=== PATIENT | male | born 1985 | race Caucasian/White ===

== ENCOUNTER 2020-10-24 02:49 | Emergency (ER) | payer SELFPAY ==
[2020-10-24] MEDS ORDERED: Proparacaine 0.5% Ophth Soln 15 ML Bottle EYEBOTH STA (03:26)
[2020-10-24] MEDS ORDERED: Tetracaine HCl/PF 0.5% 4 ML Bottle ONE (03:55)
[2020-10-24] MEDS ORDERED: Tetracaine HCl/PF 0.5% 4 ML Bottle EYELF STA (03:55)
[2020-10-24] MEDS ORDERED: Erythromycin Base 0.5% Ophth Oint 1 GM Tube EYERT ONE (04:07)
--- NOTE | 2020-10-24 04:12 | EDM.PDOC ---
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 He has a foreign body sensation. When he closes his lid it feels like it rubs against his eye. 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 He has irritation. There is no discharge. Review of systems: As per history of present illness and below otherwise all systems reviewed and negative. Past medical history: As per history of present illness and as reviewed below otherwise noncontributory. Surgical history: As per history of present illness and as reviewed below otherwise noncontributory. Social history: No reported history of drug or alcohol abuse. Family history: As per history of present illness and as reviewed below otherwise noncontribu tory. Physical exam: Constitutional - well developed, well-nourished and in no acute distress HEENT - normocephalic, no evidence of trauma - external nose and mouth normal - no mass in neck and no JVD - mucosae moist EYES - full EOM, PERRL, no icterus -palpebral conjunctiva injected in the right eye. Lid eversion negative lid search negative fluorescein exam negative anesthetized in a very careful lid eversion none not revealing foreign matter. The patient had an irrigation under his eyelid 3 times with saline. Respiratory - no respiratory distress, equal bilateral expansion, lungs clear to auscultation and no abnormal lung sounds Cardiovascular - Regular Rhythm with S1 and S2 appreciated and no murmur, gallop or rub. GI - abdomen soft without distension or organomegaly - normal bowel sounds - no guard or rebound Musculoskeletal no gross deformity of long bones or joints - no tenderness, swelling or edema Neurologic - Alert and oriented times four - CN II-XII grossly intact - motor sensory and coordination symmetrically normal Psychiatric - appropriate mood and affect with normal thought content Hematologic - No petechiae or purpura - mucosa appropriate color and sclera not pale - normal nail bed color and refill Integument - no rash or evidence of trauma - normal turgor Diagnostics: [] Therapeutics: [] Impression: [] Plan: [] Definitive disposition and diagnosis as appropriate pending reevaluation and review of above. 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 Pain Score (Numeric/FACES): 6 - Related Data Allergies Allergy/AdvReac Type Severity Reaction Status Date / Time No Known Allergies Allergy Verified 10/24/20 03:18 Home Meds: Home Meds SUMAtriptan succinate [Imitrex] 0 mg INJECT ASDIRECTED PRN 12/01/14 [History] Erythromycin Base [Erythromycin 0.5% Ophth Oint] 1 applic OP Q12H #1 gm 10/24/20 [Rx] Past Medical History - Past Health History Medical/Surgical History: Denies Medical/Surgical History HEENT History: Reports: None Cardiovascular History: Reports: None Respiratory History: Reports: None Gastrointestinal History: Reports: None Genitourinary History: Reports: None Musculoskeletal History: Reports: None Other Neuro History: "cluster headaches" Psychiatric History: Reports: None Endocrine/Metabolic History: Reports: None Hematologic History: Reports: None Immunologic History: Reports: None Oncologic (Cancer) History: Reports: None Dermatologic History: Reports: None - Infectious Disease History Infectious Disease History: Reports: None - Past Surgical History Head Surgeries/Procedures: Reports: None Social & Family History - Family History Family Medical History: No Pertinent Family History - Tobacco Use Tobacco Use Status *Q: Current Some Day Tobacco User Years of Tobacco use: 15 Packs/Tins Daily: 1 Used Tobacco, but Quit: No - Caffeine Use Caffeine Use: Reports: None - Recreational Drug Use Recreational Drug Use: No ED ROS GENERAL - Review of Systems Review Of Systems: Comprehensive ROS is negative, except as noted in HPI. ED EXAM GENERAL W FULL EYE - Physical Exam Exam: See Below Text/Narrative:: My physical exam is in the HPI Course - Vital Signs Last Recorded V/S: Last Vital Signs Temp 36.6 C 10/24/20 03:13 Pulse 62 10/24/20 03:13 Resp 18 10/24/20 03:13 BP 148/83 H 10/24/20 03:13 Pulse Ox 98 10/24/20 03:13 - Orders/Labs/Meds Orders: Active Orders 24 hr Category Date Time Status Erythromycin Base [Erythromycin 0.5% Ophth Oint] Med 10/24/20 04:07 Once 1 gm EYERT ONETIME ONE Meds: Medications Discontinued Medications Generic Name Dose Route Start Last Admin Trade Name Freq PRN Reason Stop Dose Admin Proparacaine HCl 0.2 ml 10/24/20 03:26 10/24/20 03:55 Proparacaine 0.5% Ophth Soln 15 Ml Bottle EYEBOTH 10/24/20 03:27 Not Given STAT STA Tetracaine HCl 2 ml 10/24/20 03:55 10/24/20 03:57 Tetracaine Hcl/Pf 0.5% 4 Ml Bottle EYELF 10/24/20 03:56 1 drop NOW STA Administration Tetracaine HCl Confirm 10/24/20 03:55 10/24/20 03:59 Tetracaine Hcl/Pf 0.5% 4 Ml Bottle Administered 10/24/20 03:56 Not Given Dose 4 ml .ROUTE .STK-MED ONE Departure - Departure Time of Disposition: 04:09 Disposition: Home, Self-Care 01 Condition: Good Clinical Impression: Conjunctivitis - Discharge Information Instructions: Bacterial Conjunctivitis, Adult, [id number] Referrals: [facility] [Primary Care Provider] - Bradford Fonseca MD [Ordering Only Provider] - Additional Instructions: Placing ointment in your lower eyelid at bedtime and once when you get up in the morning. Additional medicine has been sent to the pharmacy in case you run out. If there is a foreign body small enough that it was difficult for us to find or see and it persists you need to see the [employer] technical lead senior developer. [facility] - Primary Care [address] [place] [address] [place] [address] The following information is given to patients seen in the emergency department who are being discharged to home. This information is to outline your options for follow-up care. We provide all patients seen in our emergency department with a follow-up referral. The need for follow-up, as well as the timing and circumstances, are variable depending upon the specifics of your emergency department visit. If you don't have a primary care physician on staff, we will provide you with a referral. We always advise you to contact your personal physician following an emergency department visit to inform them of the circumstance of the visit and for follow-up with them and/or the need for any referrals to a consulting specialist. The emergency department will also refer you to a specialist when appropriate. This referral assures that you have the opportunity for follow-up care with a specialist. All of these measure are taken in an effort to provide you with optimal care, which includes your follow-up. Under all circumstances we always encourage you to contact your private hythomascian who remains a resource for coordinating your care. When calling for follow-up care, please make the office aware that this follow-up is from your recent emergency room visit. If for any reason you are refused follow-up, please contact the [facility] Emergency Department at and asked to speak to the emergency department charge nurse. Sepsis Event Note (ED) - Evaluation Sepsis Screening Result: No Definite Risk - Focused Exam Vital Signs: Vital Signs Temp Pulse Resp BP Pulse Ox 10/24/20 03:13 36.6 C 62 18 148/83 H 98 - My Orders Last 24 Hours: My Active Orders 10/24/20 04:07 Erythromycin Base [Erythromycin 0.5% Ophth Oint] 1 gm EYERT ONETIME ONE - Assessment/Plan Last 24 Hours: My Active Orders 10/24/20 04:07 Erythromycin Base [Erythromycin 0.5% Ophth Oint] 1 gm EYERT ONETIME ONE
[2020-10-24 04:33] VITALS: BP 128/72; PULSE 82
== END 2020-10-24 04:34 | disposition home or self-care (01) ==
LOC: MW.ED 02:49
DX: H10.9 Unspecified conjunctivitis (principal); Z72.0 Tobacco use
CPT/HCPCS: 99283; A9270